=== PATIENT | male | born 1940 | race Caucasian/White ===

== ENCOUNTER 2017-05-05 10:47 | Observation (INO) | payer MEDICARE ==
[2017-05-05] MEDS: NORMAL SALINE 1,000 ML IV PRN ×2 (12:13→14:24)
[2017-05-05] MEDS ORDERED: PANTOPRAZOLE SODIUM 80 MG in NORMAL SALINE 100 ML IV ONE (13:00)
[2017-05-05] MEDS ORDERED: PANTOPRAZOLE SODIUM 40 MG in NORMAL SALINE 50 ML IV SCH (13:15)
[2017-05-05 15:56] LABS: Hematocrit 21.4 % (42.0-52.0)
[2017-05-05] MEDS ORDERED: ACETAMINOPHEN 325 MG TABLET PO PRN (17:41)
[2017-05-05] MEDS ORDERED: HYDROcodone/ACETAMINOPHEN 1 EACH TABLET PO PRN (18:01)
[2017-05-05] MEDS ORDERED: ACETAMINOPHEN 500 MG TABLET PO PRN (18:01)
--- NOTE | 2017-05-05 18:01 | HP ---
Chief Complaint - Chief Complaint Date of Service: 05/05/17 Time of Service: 12:45 Chief Complaint: Fatigue and black stools History of Present Illness: Keven is a 76 yo male with PMH of atrial fibrillation on xarelto, CAD , PVD, GERD, lumbar disc herniation. He reports frequent black diarrhea this week. No bright red blood, emesis, or abdominal pain. He reports feeling more fatigued this week than usual. He has been on xarelto for a couple weeks after being switched from Coumadin to xarelto. He was switched to xarelto for convenience. He likes not having to check his labs routinely or watch his diet closely like he did while on coumadin. He denies use of NSAIDs, stating he uses tylenol. There has been no significant change in his diet. He reports his GERD is controlled with omeprazole 20mg daily, which he has been taking. He was seen in the ER initially on 05/01/17. His hemoglobin was 10 and he has heme positive stools. He was scheduled for follow up in clinic on 05/04/17. In clinic on 05/04/17 he was seen and found to have a hgb of 8.3 and reported still having black stools. He reported the frequency had decreased. We discussed admission at that time but he elected to treat as outpatient. He was told to hold his xarelto, started on omeprazole 40mg BID, educated to hydrate, and return today for a recheck of hgb. He was informed if he has an increase in black stools or stools show bright red blood to return to the ER. He returned to clinic lab this morning and repeat hgb was 7.8. He reports stools continue to get less frequent and reports that this mornings stool was solid and appeared dark brownish. - Patient's Past Medical History Patient History - Medical: Anemia, Cataracts, Depression, GERD, Headache, Hypothyroidism, Renal Disease Patient History - Cardiac/Respiratory: Angina, Atrial Fibrillation, Coronary Heart Disease, CHF, Deep Vein Thrombosis, Hypertension, Peripheral Vascular Disease, TIA Patient History - Cancer: No Hx of Cancer Patient History - Surgical Procedures: Angioplasty, Cataracts, Cholecystectomy, Colonoscopy, Coronary Bypass Surgery, Pacemaker, Other Patient History - Other: None - Family History Mother Family History - Medical: Family History - Cardiac/Respiratory: COPD, Myocardial Infarction Father Family History - Medical: Family History - Cardiac/Respiratory: Myocardial Infarction - Social History Living Situations: home Abuse History: No History of abuse Psych History: Hx of Anxiety, Hx of Depression Smoking Status: Former smoker Have you smoked in the past 12 months: No Alcohol Use: none Drug Use: none - Immunizations Immunizations Up to Date: Yes Hx Pneumococcal Vaccination: Yes History of Influenza Vaccine: Yes Review Of Systems (GEN) - Review of Systems Generalized/Overall Review: Present: Weakness, Fatigue. Absent: Chills, Fever EENTM: Present: No Symptoms Reported Cardiac: Present: No Symptoms Reported Abdominal: Present: Diarrhea, Melena. Absent: Nausea, Vomiting, Hematemesis, Abdominal Pain, Constipation, Bright blood from rectum Genitourinary: Present: No Symptoms Reported Musculoskeletal: Present: No Symptoms Reported Neurological: Present: No Symptoms Reported Skin: Present: No Symptoms Reported Endocrine: Present: No Symptoms Reported Immunizations: IMMUNIZATION HX Immunizations Up to Date Yes History of Influenza Vaccine Yes Hx Pneumococcal Vaccination Yes Allergies/Adverse Reactions: Allergies Allergy/AdvReac Type Severity Reaction Status Date / Time meperidine HCl [From Demerol] Allergy Verified 08/01/14 15:54 Home Medications: HOME MEDICATIONS Aspirin [William Chewable Aspirin] 81 mg PO DAILY 01/23/14 [Last Taken Unknown] Ferrous Sulfate [Iron] 325 mg PO BID 01/23/14 [Last Taken Unknown] Flaxseed Oil [Flax Seed Oil] 1,000 mg PO DAILY 01/23/14 [Last Taken Unknown] Furosemide [Lasix] 80 mg PO BID 01/23/14 [Last Taken Unknown] Levothyroxine Sodium [Unithroid] 100 mcg PO DAILY 01/23/14 [Last Taken Unknown] Lisinopril [Zestril] 5 mg PO DAILY 01/23/14 [Last Taken Unknown] Multivitamin [Multi-Vitamin Daily] 1 each PO DAILY 01/23/14 [Last Taken Unknown] Omeprazole [Prilosec] 40 mg PO BID 01/23/14 [Last Taken Unknown] traZODone HCL [Desyrel] 100 mg PO DAILY 01/23/14 [Last Taken Unknown] FLUoxetine HCL [Prozac] 40 mg PO DAILY 05/30/14 [Last Taken Unknown] Rivaroxaban [Xarelto] 15 mg PO DAILY 05/01/17 [Last Taken Unknown] Acetaminophen [Tylenol] 1,000 mg PO Q6H PRN 05/05/17 [Last Taken Unknown] Atorvastatin Calcium 40 mg PO HS 05/05/17 [Last Taken Unknown] Carvedilol [Coreg] 12.5 mg PO BID 05/05/17 [Last Taken Unknown] Docusate Sodium 100 mg PO HS 05/05/17 [Last Taken Unknown] HYDROcodone/ACETAMINOPHEN [Hydrocodone-Acetamin 5-325 mg] 1 tab PO Q4H PRN 05/05 [Last Taken Unknown] Lactobacillus Combination No.4 [Probiotic] 2 each PO DAILY 05/05/17 [Last Taken Unknown] Loratadine [Claritin] 10 mg PO DAILY 05/05/17 [Last Taken Unknown] Exam - Exam Vital Signs: Vital Signs - Last Taken Temp 36.5 C 05/05/17 16:10 Pulse 66 05/05/17 16:10 Resp 16 05/05/17 16:10 BP 128/44 05/05/17 16:10 Pulse Ox 96 05/05/17 16:10 Constitutional: Present: Alert, Oriented x3, Cooperative ENT Exam: Present: hard of hearing Eye Exam: bilateral eye: normal inspection Respiratory: Present: lungs clear, normal breath sounds Cardiovascular/Chest: Present: no edema, no murmur, irregularly irregular Abdomen: Present: Normal bowel sounds, soft, nontender, nondistended Skin Exam: Present: normal color, warm/dry, no cyanosis Appearance: Present: appropriate appearance, appropriate insight Eye contact: Present: cooperative, good eye contact, normal speech Diagnostic Studies: Abnormal Lab Results 05/05/17 05/05/17 Range/Units 10:10 15:41 Hgb 7.0 L* (13.5-18.0) gm/dL Hct 21.4 L* (42.0-52.0) % Crossmatch See Detail Laboratory Results Hgb 7.0 gm/dL (13.5-18.0) L* 05/05/17 15:41 Hct 21.4 % (42.0-52.0) L* 05/05/17 15:41 Blood Type B Positive 05/05/17 10:10 Antibody Screen Negative 05/05/17 10:10 Crossmatch See Detail 05/05/17 10:10 Assessment/Plan - Narrative Narrative: Aurelio is a 76 yo male with: 1) Upper GI Bleed - Black tarry stools with hemoccult positive stools while on xarelto. Will hold xarelto, give 2 large bore IVs to give aggressive replacement if needed, protonix 80mg IV bolus then 40mg IV q12hr, NPO, serial hemograms every 6 hours. I suspect he is hypovolemic due to diarrhea and will therefore give NS 1 liter over 2 hours and recheck hgb an hour after this to see what a more accurate hgb may be. I suspect the current hgb of 7.8 to be hemeconcentrated. If hgb drops to 7 or less will plan to transfuse 2 units of pRBCs and then continue to monitor serial hemograms q6hr. Clinically it sounds as though GI bleed is slowing down based on the decreased frequency of stools, increasing firmness, and more brown appearance of the stool today. 2) Acute Blood Loss Anemia 3) Atrial Fibrillation - Holding xarelto due to GI bleed. Will place on SCDs while in bed for DVT prophylaxis. Will need to consider risks vs benefits of staying on xarelto senior care for anticoagulation vs returning to Coumadin vs trying Eliquis. 4) CKDIII - Stable 5) Social - Due to clinically appearance that the GI bleed has stopped expect that if hemoglobin remains stable after blood transfusions that he may be able to be discharged to home tomorrow. Expect 1 midnight stay and will therefore admit to observation. - Assessment/Plan (1) Upper GI bleed Problem: Acute (2) Acute blood loss anemia Problem: Acute (3) Atrial fibrillation Problem: Chronic (4) Chronic diastolic heart failure Problem: Chronic (5) Chronic kidney disease, stage 3 Problem: Chronic
[2017-05-05] MEDS ORDERED: FUROSEMIDE 10 MG/ML VIAL ONE (20:06)
[2017-05-05] MEDS ORDERED: FUROSEMIDE 10 MG/ML VIAL IV ONE (20:30)
[2017-05-05] MEDS: FUROSEMIDE 10 MG/ML VIAL IV ONE ×2 (20:30→20:43)
[2017-05-05] MEDS: FERROUS SULFATE 325 MG TABLET PO SCH (20:39)
[2017-05-05] MEDS ORDERED: FERROUS SULFATE 325 MG TABLET PO SCH ×2 (21:00)
[2017-05-05] MEDS ORDERED: traZODone HCL 50 MG TABLET PO SCH (21:00)
[2017-05-05] MEDS ORDERED: ATORVASTATIN CALCIUM 40 MG TABLET PO SCH (21:00)
[2017-05-05] MEDS ORDERED: CARVEDILOL 12.5 MG TABLET PO SCH (21:00)
[2017-05-05] MEDS ORDERED: DOCUSATE SODIUM 100 MG CAPSULE PO SCH ×2 (21:00)
[2017-05-05] MEDS: CARVEDILOL 12.5 MG TABLET PO SCH (23:04)
[2017-05-06 00:50] LABS: Hematocrit 25.8 % (42.0-52.0); Hemoglobin 8.8 gm/dL (13.5-18.0)
[2017-05-06] MEDS ORDERED: PANTOPRAZOLE SODIUM 40 MG in NORMAL SALINE 50 ML IV SCH (01:00)
[2017-05-06] MEDS: NORMAL SALINE 1,000 ML IV PRN (04:57)
[2017-05-06] MEDS ORDERED: LEVOTHYROXINE SODIUM 100 MCG TABLET PO SCH (07:00)
--- NOTE | 2017-05-06 08:50 | DS ---
(1) Acute blood loss anemia Problem: Acute (2) Upper GI bleed Problem: Acute (3) Black tarry stools Problem: Acute (4) Atrial fibrillation Problem: Chronic (5) GERD (gastroesophageal reflux disease) Problem: Chronic (6) Hypothyroidism Problem: Chronic Description of Stay: Keven Gomes, is a 76 yo male with PMH of atrial fibrillation on xarelto, CAD, PVD, GERD, lumbar disc herniation who was admitted on 05/05/2017 for black tarry stools and anemia. . HE HAD frequent black diarrhea on the week of admission. No bright red blood, emesis, or abdominal pain. He reports feeling more fatigued this week than usual. He has been on xarelto for a couple weeks after being switched from Coumadin to xarelto. He denied use of NSAIDs. There was no significant change in his diet. His GERD is controlled with omeprazole 20mg daily, which he hasd been taking. He was seen in the ER initially on 05/01/17. His hemoglobin was 10 and he has heme positive stools. He was scheduled for follow up in clinic on 05/04/17. In clinic on 05/04/17 he was seen and found to have a hgb of 8.3 and reported still having black stools. He reported the frequency had decreased.Dr. Kumari discussed admission at that time but he elected to treat as outpatient. He was told to hold his xarelto, started on omeprazole 40mg BID, educated to hydrate, and return today for a recheck of hgb. He was informed if he had an increase in black stools or stools show bright red blood to return to the ER. He returned to clinic on the morning of admission and repeat hgb was 7.8. He reported stools continue to get less frequent . He was admitted then for serial H/H. His Hb went down to 7 and he had 2 units of PRBC. His Hb is up to 8.8. After discussion about EGD, they have decided go home today and follow up with Dr. Kumari about their next step. Procedures Performed: none Discharge Location: Home Disposition: Home self-care Condition: Stable Discharge Activity: Activity as tolerated Discharge Diet: Low salt Referrals: Cory Kumari DO [Primary Care Provider] - Problem Oriented Discharge Instructions to Patient/Family: Gastrointestinal Bleeding, [id number] Additional Patient Instructions (free text): -Please make TCM appointment unless halfway discharge. Thank you! Layla @ [phone]. Please make an appointment with Dr. Kumari this Monday. Repeat H/H this Monday. Complete Home Medications List: Complete Home Medication List: Ferrous Sulfate [Iron] 325 mg PO BID 01/23/14 Flaxseed Oil [Flax Seed Oil] 1,000 mg PO DAILY 01/23/14 Furosemide [Lasix] 80 mg PO BID 01/23/14 Levothyroxine Sodium [Unithroid] 100 mcg PO DAILY 01/23/14 Lisinopril [Zestril] 5 mg PO DAILY 01/23/14 Multivitamin [Multi-Vitamin Daily] 1 each PO DAILY 01/23/14 Omeprazole [Prilosec] 40 mg PO BID 01/23/14 traZODone HCL [Desyrel] 100 mg PO DAILY 01/23/14 FLUoxetine HCL [Prozac] 40 mg PO DAILY 05/30/14 Acetaminophen [Tylenol] 1,000 mg PO Q6H PRN 05/05/17 Atorvastatin Calcium 40 mg PO HS 05/05/17 Carvedilol [Coreg] 12.5 mg PO BID 05/05/17 Docusate Sodium 100 mg PO HS 05/05/17 HYDROcodone/ACETAMINOPHEN [Hydrocodone-Acetamin 5-325 mg] 1 tab PO Q4H PRN 05/05 Lactobacillus Combination No.4 [Probiotic] 2 each PO DAILY 05/05/17 Loratadine [Claritin] 10 mg PO DAILY 05/05/17 Amb Orders for Discharge: CBC Time Frame: 05/08/17, Location: Determined By Patient
[2017-05-06] MEDS ORDERED: LORATADINE 10 MG TABLET PO SCH (09:00)
[2017-05-06] MEDS ORDERED: FUROSEMIDE 80 MG TABLET PO SCH (09:00)
[2017-05-06] MEDS ORDERED: LISINOPRIL 5 MG TABLET PO SCH (09:00)
[2017-05-06] MEDS ORDERED: CARVEDILOL 12.5 MG TABLET PO SCH (09:00)
[2017-05-06] MEDS ORDERED: LACTOBACILLUS ACIDOPHILUS 100 CAP BTL PO SCH (09:00)
[2017-05-06] MEDS ORDERED: MULTIVITAMINS 1 CAP CAPSULE PO SCH (09:00)
[2017-05-06] MEDS ORDERED: FLUoxetine HCL 20 MG CAPSULE PO SCH (09:00)
[2017-05-06] MEDS: FERROUS SULFATE 325 MG TABLET PO SCH (09:15)
[2017-05-06] MEDS: CARVEDILOL 12.5 MG TABLET PO SCH (09:15)
[2017-05-06 09:34] VITALS: BP 136/64
== END 2017-05-06 11:15 | disposition home or self-care (01) ==
LOC: MS 10:47
PROVIDERS: ADMIT Family Medicine; ATTEND Family Medicine
DX: D62 Acute posthemorrhagic anemia (principal); K92.2 Gastrointestinal hemorrhage, unspecified; K92.1 Melena; I48.2 Chronic atrial fibrillation; Z79.01 Long term (current) use of anticoagulants; K21.9 Gastro-esophageal reflux disease without esophagitis; E03.9 Hypothyroidism, unspecified; I12.9 Hypertensive chronic kidney disease with stage 1 through stage 4 chronic kidney disease, or unspecified chronic kidney disease; N18.3 Chronic kidney disease, stage 3 (moderate); Z87.891 Personal history of nicotine dependence; I50.32 Chronic diastolic (congestive) heart failure; I25.10 Atherosclerotic heart disease of native coronary artery without angina pectoris; Z68.26 Body mass index [BMI] 26.0-26.9, adult
CPT/HCPCS: 36430; 85014; 85018; 86850; 86900; 96374; G0378; G0379; P9016

== ENCOUNTER 2019-07-30 17:44 | Observation (INO) ==
[2019-07-30 18:17] LABS: Hemoglobin 11.4 gm/dL (13.5-18.0); Mean Cell Volume 98.6 fl (78-100); Mean Corpuscular Hemoglobin 32.1 pg (27-31); Mean Corpuscular Hgb Conc 32.6 g/dl (32-36); Mean Platelet Volume 10.7 fl (8-11.3); Neutrophil # 2.9 K/mm3 (1.3-6.0); Neutrophil % 68.4 % (42-75.0); Platelet Count 114 K/mm3 (150-450); Red Blood Count 3.55 M/mm3 (4.7-6.0); Red Cell Distribution Width 18.5 % (11.5-14.0); White Blood Count 4.3 K/mm3 (4.0-10.5)
[2019-07-30 18:22] LABS: Prothrombin Time (Patient) 13.2 Seconds (9.1-10.7)
[2019-07-30 18:26] LABS: INR 1.35 INR (0.92-1.08); Partial Thrombolplastin Time 32.4 Seconds (24-32)
[2019-07-30 18:39] LABS: Albumin * 3.5 gm/dl (3.4-5.0); Anion Gap 15.9 mmol/L (6.8-13.8); BUN/Creatinine Ratio 26.5 (9.0-21.6); Bilirubin, Total 1.4 mg/dL (0.0-1.1); Ca. Corrected For Albumin 9.1 mg/dL (8.4-10.2); Potassium 4.9 mmol/L (3.4-4.6); Total Protein 7.6 gm/dL (6.2-8.2)
--- NOTE | 2019-07-30 19:42 | ERNOTE ---
GI Bleeding/Rectal Pain ER Date of Service: 07/30/19 Presenting Symptoms: rectal bleeding Time Seen by Provider: 07/30/19 18:13 Source: patient Exam Limitations: no limitations Immunizations: IMMUNIZATION HX Immunizations Up to Date Yes History of Influenza Vaccine Yes Hx Pneumococcal Vaccination Yes Allergies/Adverse Reactions: Allergies Penicillins Allergy (Verified 07/30/19 18:16) Other meperidine HCl [From Demerol] Adverse Reaction (Severe, Verified 07/30/19 18:16) "goes wild" Home Medications: HOME MEDICATIONS Ferrous Sulfate [Iron] 650 mg PO DAILY 01/23/14 [Last Taken Unknown] Flaxseed Oil [Flax Seed Oil] 1,000 mg PO DAILY 01/23/14 [Last Taken Unknown] Multivitamin [Multi-Vitamin Daily] 1 ea PO DAILY 01/23/14 [Last Taken Unknown] Docusate Sodium 100 mg PO BID 05/05/17 [Last Taken Unknown] Loratadine [Claritin] 10 mg PO DAILY 05/05/17 [Last Taken Unknown] Aspirin 81 mg PO DAILY 06/23/17 [Last Taken Unknown] Acetaminophen 325 mg PO Q4H PRN 08/15/17 [Last Taken Unknown] polyethylene glycol 3350 17 gram/dose oral powder 17 g PO DAILY g 09/13/17 [Last Taken Unknown] apixaban 5 mg tablet 5 mg PO BID #180 tab 07/11/18 [Last Taken Unknown] fluoxetine 60 mg tablet 60 mg PO DAILY #90 tab 11/06/18 [Last Taken Unknown] furosemide 80 mg tablet 80 mg PO DAILY #180 tab 11/07/18 [Last Taken Unknown] levothyroxine 100 mcg tablet 100 mcg PO DAILY #90 tab 12/24/18 [Last Taken Unknown] lisinopril 5 mg tablet 5 mg PO DAILY #90 tab 03/26/19 [Last Taken Unknown] carvedilol 3.125 mg tablet 3.125 mg PO BIDWM #180 tab 04/16/19 [Last Taken Unknown] Omeprazole 20 mg PO DAILY 07/30/19 [Last Taken Unknown] Narrative: Patient presents to the ED for blood in stool. He presents with a bag of bright red blood that he brought with him. He has had 3 episodes of this blood stool since last night. Given that it is ongoing he came in. He is anticoagulated. Mild low abdominal cramping at times. No CP or acute SOB. He is due to gat his pacemaker changed this month. Has had GI bleeding before like this and had a leasion in his colon by his report. No vomiting. Timing: intermittent Quality/Severity: Present: moderate Nausea/Vomiting: Present: blood Abdominal Pain: Present: other - mild low abdominal cramping Rectal Bleeding: Present: without stool Associated Symptoms: Reports: other - bloody Prior Treament: Denies: recently seen Review of Systems - Review of Systems Constitutional: Absent: fever EYE: Present: no symptoms reported ENT: Absent: sore throat Respiratory: Absent: shortness of breath Cardiology: Absent: chest pain Gastrointestinal/Abdominal: Present: See HPI Genitourinary: Absent: dysuria Neurological: Absent: weakness All Other Systems: All systems neg except as marked Medical History (Last Reviewed 07/30/19 @ 19:33 by Gareth Arzate MD) Cardiomyopathy (Chronic) Onset Date: 09/16/14 CHF (congestive heart failure) (Chronic) Onset Date: 07/31/14 Chronic systolic CHF (congestive heart failure) (Chronic) Onset Date: Unknown Chronic kidney disease, stage 3 (Chronic) Onset Date: 11/14/16 Weakness (Acute) Onset Date: Unknown Coronary artery disease (Chronic) Onset Date: Unknown Atrial fibrillation (Chronic) Onset Date: Unknown Pulmonary hypertension (Chronic) Onset Date: Unknown Hypothyroidism (Chronic) Onset Date: Unknown GERD (gastroesophageal reflux disease) (Chronic) Onset Date: Unknown Chronic diastolic heart failure (Chronic) Onset Date: Unknown Anemia (Acute) Onset Date: Unknown Peripheral vascular disease (Chronic) Onset Date: 06/07/16 Has received pneumococcal vaccination Onset Date: Unknown Received influenza vaccination in current influenza season prior to admission Onset Date: ~11/2017 Atrial flutter Onset Date: 07/31/14 Bilateral hearing loss Onset Date: Unknown Deviated nasal septum Onset Date: Unknown Diverticula of colon Onset Date: 02/21/06 Essential hypertension Onset Date: Unknown Lumbar herniated disc Onset Date: Unknown Renal insufficiency Onset Date: Unknown Sleep apnea Onset Date: 07/31/14 Surgical History: Surgical History (Last Reviewed 07/30/19 @ 19:33 by Gareth Arzate MD) History of implantable cardioverter-defibrillator (ICD) placement Onset Date: 04/15/09 [facility] - AV ICD History of angioplasty Onset Date: 10/03/11 [facility] - distal abd aortogram, rasta iliac angiogram, right leg angiogram, right popliteal artery [employer], right anterior tib artery [employer] History of arterial bypass of lower extremity Onset Date: 07/14/16 right common femoral to anterior tibial artery bypass with ipsilateral reversed greater saphenous vein. Dr. Blanton, [facility]. History of barium enema Onset Date: 02/21/06 extensive colonic diverticular disease History of carotid endarterectomy Onset Date: ~09/2015 [facility] History of cholecystectomy Onset Date: Unknown History of cholecystectomy with sphincterotomy and common bile duct extraction. History of common bile duct surgery Onset Date: Unknown History of cholecystectomy with sphincterotomy and common bile duct extraction. History of esophagogastroduodenoscopy (EGD) Onset Date: 08/16/17 Dr. Kely Burdick, [facility]. EGD with biopsy. clotest negative. History of sphincterotomy of sphincter of Oddi Onset Date: Unknown History of cholecystectomy with sphincterotomy and common bile duct extraction. History of surgery on extremity Onset Date: ~2004 thrombectomy, right lower extremity History of vascular surgery Onset Date: 11/12/16 11/12/2016: RLE lysis check with arteriogram and angioplasty to occluded LE bypass graft. Dr. Cooney, [facility]. 01/04/2017: angioplasty of right bypass. Dr. Blanton [facility]. 02/24/2017: angioplasty , proximal segment of right bypass graft scored and angioplasty with drug coated balloon. Dr. Flores, [facility]. 06/27/2017: Right basiliv vein harvest, revision of right [employer]PER[employer]OR [employer]- AT bypass with interposition graft in the thigh, completion angiogram. Dr. Blanton [facility]. Status post cystourethroscopy with dilation of urethral stricture Onset Date: 12/26/05 Dr. Vyas History of cardiac pacemaker Onset Date: Unknown History of colonoscopy Onset Date: 08/17/17 Dr. Kely Burdick, [facility]. serrated adenoma. RECHECK 3 YEARS. Family History: Family History (Last Reviewed 07/30/19 @ 19:33 by Gareth Arzate MD) Brother Hypertension Father , age 68 Myocardial infarction Heart disease Mother , age 72 Hypertension Heart disease Social History: (Last Reviewed 07/30/19 @ 19:34 by Gareth Arzate MD) Social History: adopted: No fdc: No Marital status: lives independently: Yes household members: spouse caregiver/support person: Yes current occupational status: retired Highest education level completed: high school graduate Service: No Tobacco: Smoking Status: Former smoker Tobacco: How many years used: 20 Alcohol: alcohol intake: former Substance Use: substance use type: does not use Dietary Habits: caffeine: Yes Type: coffee, carbonated beverages Physical Exam - Physical Exam General Appearance: Present: alert, no apparent distress Head Exam: Present: normal inspection, no evidence of injury Eye Exam: Normal inspection: bilateral, PERRL: bilateral Ears, Nose, Throat: Present: normal ENT inspection Neck: Present: normal inspection Respiratory: Present: no respiratory distress, normal breath sounds, no accessory muscle use, lungs clear Cardiovascular/Chest: Present: regular rate, rhythm, normal peripheral pulses Gastrointestinal/Abdominal: Present: normal bowel sounds, soft, other - minimal LLQ tendenress to palpation. Rectal Exam: Present: other - no external hemorrhoids. No abscess Back Exam: Present: normal range of motion Extremity Exam: Present: normal range of motion Neurological Exam: Present: alert, no motor/sensory deficits Skin Exam: Present: normal color, warm/dry Progress - Results and Orders Patient's Lab Results:: I have reviewed the patient's lab results. - Vital Signs Patient's Vital Signs:: I have reviewed the patient's vital signs. Vital Signs: Vital Signs 07/30/19 17:49 07/30/19 18:47 Temperature 36.5 C Pulse Rate 63 61 Respiratory Rate 16 12 Blood Pressure 137/72 130/84 O2 Sat by Pulse Oximetry 96 96 - Progress/Reassessment Chief Complaint: GI Bleed Progress Note-Subjective: 07/30/19 19:40 Patient is anticoagulated with recurrent bloody stools. He has apparent on- going bleeding given recurrent episodes and is at high risk with his general poor health and anticoagualted status. D/W Dr Kumari who will admit for observation. His stability as outpatient cannot be guaranteed. Patient is most agreeable to plan of action. Departure Clinical Impression: GI bleeding, Anticoagulated - Departure Disposition: Still a patient Condition: Fair
[2019-07-30] MEDS ORDERED: PANTOPRAZOLE SODIUM 80 MG in NORMAL SALINE 100 ML IV ONE (22:52)
[2019-07-30] MEDS ORDERED: ACETAMINOPHEN 325 MG TABLET PO PRN (22:58)
[2019-07-30 23:16] LABS: Hemoglobin 11.1 gm/dL (13.5-18.0); Mean Cell Volume 98.8 fl (78-100); Mean Corpuscular Hemoglobin 32.3 pg (27-31); Mean Corpuscular Hgb Conc 32.6 g/dl (32-36); Mean Platelet Volume 11.3 fl (8-11.3); Platelet Count 117 K/mm3 (150-450); Red Blood Count 3.44 M/mm3 (4.7-6.0); Red Cell Distribution Width 18.5 % (11.5-14.0); White Blood Count 4.2 K/mm3 (4.0-10.5)
--- NOTE | 2019-07-30 23:38 | HP ---
Chief Complaint - Chief Complaint Date of Service: 07/30/19 Time of Service: 23:22 Chief Complaint: Bright red blood History of Present Illness: Aurelio is a 78 yo male with peripheral arterial disease on chronic anticoagulation. He has had a history of brief and minor GI bleeds and has elected to remain on anticoagulation. He reports for the past three days he has had bright red bloody stools. He reports fatigue is a little more than usual and today he was having LLQ abdominal pain. He reports at the moment that the abdominal pain is gone. He has not had nausea or emesis. He reports no change in medication or diet. He presented to the ER today due to continued bright red bloody stools. He reports his last dose of blood thinner was this morning. He also reports cardiology is planning to replace his pacemaker 08/16/19. Medical History (Last Reviewed 07/30/19 @ 20:09 by Светлана Gallegos RN) Cardiomyopathy (Chronic) Onset Date: 09/16/14 CHF (congestive heart failure) (Chronic) Onset Date: 07/31/14 Chronic systolic CHF (congestive heart failure) (Chronic) Onset Date: Unknown Chronic kidney disease, stage 3 (Chronic) Onset Date: 11/14/16 Weakness (Acute) Onset Date: Unknown Coronary artery disease (Chronic) Onset Date: Unknown Atrial fibrillation (Chronic) Onset Date: Unknown Pulmonary hypertension (Chronic) Onset Date: Unknown Hypothyroidism (Chronic) Onset Date: Unknown GERD (gastroesophageal reflux disease) (Chronic) Onset Date: Unknown Chronic diastolic heart failure (Chronic) Onset Date: Unknown Anemia (Acute) Onset Date: Unknown Peripheral vascular disease (Chronic) Onset Date: 06/07/16 Has received pneumococcal vaccination Onset Date: Unknown Received influenza vaccination in current influenza season prior to admission Onset Date: ~11/2017 Atrial flutter Onset Date: 07/31/14 Bilateral hearing loss Onset Date: Unknown Deviated nasal septum Onset Date: Unknown Diverticula of colon Onset Date: 02/21/06 Essential hypertension Onset Date: Unknown Lumbar herniated disc Onset Date: Unknown Renal insufficiency Onset Date: Unknown Sleep apnea Onset Date: 07/31/14 Surgical History: Surgical History (Last Reviewed 07/30/19 @ 20:09 by Светлана Gallegos RN) History of implantable cardioverter-defibrillator (ICD) placement Onset Date: 04/15/09 [facility] - AV ICD History of angioplasty Onset Date: 10/03/11 [facility] - distal abd aortogram, rasta iliac angiogram, right leg angiogram, right popliteal artery [employer], right anterior tib artery [employer]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 Dr. Blanton, [facility]. History of barium enema Onset Date: 02/21/06 extensive colonic diverticular disease History of carotid endarterectomy Onset Date: ~09/[address] [facility] History of cholecystectomy Onset Date: Unknown History of cholecystectomy with sphincterotomy and common bile duct extraction. History of common bile duct surgery Onset Date: Unknown History of cholecystectomy with sphincterotomy and common bile duct extraction. History of esophagogastroduodenoscopy (EGD) Onset Date: 08/16/17 Dr. Kely Burdick [facility]. EGD with biopsy. clotest negative. History of sphincterotomy of sphincter of Oddi Onset Date: Unknown History of cholecystectomy with sphincterotomy and common bile duct extraction. History of surgery on extremity Onset Date: ~2004 thrombectomy, right lower extremity History of vascular surgery Onset Date: 11/12/16 11/12/2016: RLE lysis check with arteriogram and angioplasty to occluded LE bypass graft. Dr. Cooney, [facility]. 01/04/2017: angioplasty of right bypass. Dr. Blanton [facility]. 02/24/2017: angioplasty , proximal segment of right bypass graft scored and angioplasty with drug coated balloon. Dr. Flores, [facility]. 06/27/2017: Right basiliv vein harvest, revision of right [employer]- AT bypass with interposition graft in the thigh, completion angiogram. Dr. Blanton, [facility]. Status post cystourethroscopy with dilation of urethral stricture Onset Date: 12/26/05 Dr. Vyas History of cardiac pacemaker Onset Date: Unknown History of colonoscopy Onset Date: 08/17/17 Dr. Kely Burdick, [facility]. serrated adenoma. RECHECK 3 YEARS. Family History: Family History (Last Reviewed 07/30/19 @ 20:09 by Светлана Gallegos, TEJ) Brother Hypertension Father , age 68 Myocardial infarction Heart disease Mother , age 72 Hypertension Heart disease Social History: (Last Reviewed 07/30/19 @ 20:09 by Светлана Gallegos, TEJ) Social History: adopted: No mcfp: No Marital status: lives independently: Yes household members: spouse caregiver/support person: Yes current occupational status: retired Highest education level completed: high school graduate Service: No Tobacco: Smoking Status: Former smoker Tobacco: How many years used: 20 Alcohol: alcohol intake: former Substance Use: substance use type: does not use Dietary Habits: caffeine: Yes Type: coffee, carbonated beverages Review Of Systems (GEN) - Review of Systems Generalized/Overall Review: Present: Weakness. Absent: Chills, Fever EENTM: Present: No Symptoms Reported Respiratory: Absent: Cough, Shortness of Breath Cardiac: Absent: Chest Pain, Edema, Palpitations Abdominal: Present: Abdominal Pain, Bright blood from rectum. Absent: Nausea, Vomiting, Hematemesis, Melena Genitourinary: Present: No Symptoms Reported Musculoskeletal: Present: No Symptoms Reported Neurological: Absent: Headache, Anxiety Skin: Absent: Lesions, Lumps Endocrine: Absent: Excessive Sweating, Flushing Immunizations: IMMUNIZATION HX Immunizations Up to Date Yes History of Influenza Vaccine Yes Hx Pneumococcal Vaccination Yes Allergies/Adverse Reactions: Allergies Allergy/AdvReac Type Severity Reaction Status Date / Time Penicillins Allergy Other Verified 07/30/19 18:16 meperidine HCl [From Demerol] AdvReac Severe "goes wild" Verified 07/30/19 18:16 Home Medications: HOME MEDICATIONS Ferrous Sulfate [Iron] 650 mg PO DAILY 01/23/14 [Last Taken Unknown] Flaxseed Oil [Flax Seed Oil] 1,000 mg PO DAILY 01/23/14 [Last Taken Unknown] Multivitamin [Multi-Vitamin Daily] 1 ea PO DAILY 01/23/14 [Last Taken Unknown] Docusate Sodium 100 mg PO BID 05/05/17 [Last Taken Unknown] Loratadine [Claritin] 10 mg PO DAILY 05/05/17 [Last Taken Unknown] Aspirin 81 mg PO DAILY 06/23/17 [Last Taken Unknown] Acetaminophen 325 mg PO Q4H PRN 08/15/17 [Last Taken Unknown] polyethylene glycol 3350 17 gram/dose oral powder 17 g PO DAILY g 09/13/17 [Last Taken Unknown] apixaban 5 mg tablet 5 mg PO BID #180 tab 07/11/18 [Last Taken Unknown] levothyroxine 100 mcg tablet 100 mcg PO DAILY #90 tab 12/24/18 [Last Taken Unknown] lisinopril 5 mg tablet 5 mg PO DAILY #90 tab 03/26/19 [Last Taken Unknown] carvedilol 3.125 mg tablet 3.125 mg PO BIDWM #180 tab 04/16/19 [Last Taken Unknown] Dextrin [Fiber] 350 gm PO 07/30/19 [Last Taken Unknown] FLUoxetine HCL [Fluoxetine HCl] 40 mg PO BID 07/30/19 [Last Taken Unknown] Furosemide [Lasix] 80 mg PO BID 07/30/19 [Last Taken Unknown] Omeprazole 20 mg PO DAILY 07/30/19 [Last Taken Unknown] Exam - Exam Vital Signs: Vital Signs - Last Taken Temp 36.3 C 07/30/19 19:45 Pulse 60 07/30/19 19:45 Resp 21 H 07/30/19 19:45 BP 152/89 H 07/30/19 19:45 Pulse Ox 94 07/30/19 19:45 Constitutional: Present: Alert, Oriented x3, Cooperative ENT Exam: Present: hearing grossly normal Eye Exam: bilateral eye: normal inspection Respiratory: Present: lungs clear, normal breath sounds Cardiovascular/Chest: Present: no murmur, bradycardia. Absent: edema Peripheral Pulses: radial (R): 2+, radial (L): 2+ Abdomen: Present: Normal bowel sounds, soft, nontender, nondistended Skin Exam: Present: normal color, other - lips darkened (usual appearance) Appearance: Present: appropriate appearance, appropriate insight Eye contact: Present: cooperative, good eye contact Thoughts: Present: normal thought pattern, no apparent hallucination Diagnostic Studies: Abnormal Lab Results 07/30/19 07/30/19 07/30/19 Range/Units 18:00 18:05 18:05 RBC 3.55 L (4.7-6.0) M/mm3 Hgb 11.4 L (13.5-18.0) gm/dL Hct 35.0 L (42.0-52.0) % MCH 32.1 H (27-31) pg RDW 18.5 H (11.5-14.0) % Plt Count 114 L (150-450) K/mm3 Lymphocytes % 18.2 L (20-51) % Monocytes % 11.4 H (0.0-9) % Lymphocytes # 0.78 L (1.5-3.5) k/mm3 PT 13.2 H (9.1-10.7) Seconds INR (Anticoag Therapy) 1.35 H (0.92-1.08) INR PTT (Mere) 32.4 H (24-32) Seconds Potassium (3.4-4.6) mmol/L Carbon Dioxide (24-32.6) mmol/L Anion Gap (6.8-13.8) mmol/L BUN (6-23) mg/dL Creatinine (0.4-1.4) mg/dL Est GFR (Non-Af Amer) (60-130) mL/min BUN/Creatinine Ratio (9.0-21.6) Random Glucose (70-110) mg/dL Total Bilirubin (0.0-1.1) mg/dL ALT (19-67) U/L Stool Occult Blood Positive H 07/30/19 07/30/19 Range/Units 18:05 22:58 RBC 3.44 L (4.7-6.0) M/mm3 Hgb 11.1 L (13.5-18.0) gm/dL Hct 34.0 L (42.0-52.0) % MCH 32.3 H (27-31) pg RDW 18.5 H (11.5-14.0) % Plt Count 117 L (150-450) K/mm3 Lymphocytes % (20-51) % Monocytes % (0.0-9) % Lymphocytes # (1.5-3.5) k/mm3 PT (9.1-10.7) Seconds INR (Anticoag Therapy) (0.92-1.08) INR PTT (White) (24-32) Seconds Potassium 4.9 H (3.4-4.6) mmol/L Carbon Dioxide 22.0 L (24-32.6) mmol/L Anion Gap 15.9 H (6.8-13.8) mmol/L BUN 76 H (6-23) mg/dL Creatinine 2.87 H (0.4-1.4) mg/dL Est GFR (Non-Af Amer) 23 L (60-130) mL/min BUN/Creatinine Ratio 26.5 H (9.0-21.6) Random Glucose 117 H (70-110) mg/dL Total Bilirubin 1.4 H (0.0-1.1) mg/dL ALT 119 H (19-67) U/L Stool Occult Blood Laboratory Results WBC 4.2 K/mm3 (4.0-10.5) 07/30/19 22:58 RBC 3.44 M/mm3 (4.7-6.0) L 07/30/19 22:58 Hgb 11.1 gm/dL (13.5-18.0) L 07/30/19 22:58 Hct 34.0 % (42.0-52.0) L 07/30/19 22:58 MCV 98.8 fl (78-100) 07/30/19 22:58 MCH 32.3 pg (27-31) H 07/30/19 22:58 MCHC 32.6 g/dl (32-36) 07/30/19 22:58 RDW 18.5 % (11.5-14.0) H 07/30/19 22:58 Plt Count 117 K/mm3 (150-450) L 07/30/19 22:58 MPV 11.3 fl (8-11.3) 07/30/19 22:58 Immature Gran % (Auto) 0.20 % (0.001-0.429) 07/30/19 18:05 Immature Gran # (Auto) 0.01 K/mm3 (0.000-0.0310) 07/30/19 18:05 Neutrophils % 68.4 % (42-75.0) 07/30/19 18:05 Lymphocytes % 18.2 % (20-51) L 07/30/19 18:05 Monocytes % 11.4 % (0.0-9) H 07/30/19 18:05 Eosinophils % 1.6 % (0.0-3.0) 07/30/19 18:05 Basophils % 0.2 % (0.0-1.0) 07/30/19 18:05 Nucleated RBC % 0.0 k/mm3 (0-1) 07/30/19 18:05 Neutrophils # 2.9 K/mm3 (1.3-6.0) 07/30/19 18:05 Lymphocytes # 0.78 k/mm3 (1.5-3.5) L 07/30/19 18:05 Monocytes # 0.5 k/mm3 (0.0-1.0) 07/30/19 18:05 Eosinophils # 0.1 k/mm3 (0.0-0.7) 07/30/19 18:05 Absolute Basophils 0.0 k/mm3 (0.0-0.1) 07/30/19 18:05 PT 13.2 Seconds (9.1-10.7) H 07/30/19 18:05 INR (Anticoag Therapy) 1.35 INR (0.92-1.08) H 07/30/19 18:05 PTT (White) 32.4 Seconds (24-32) H 07/30/19 18:05 Sodium 136 mmol/L (132-142) 07/30/19 18:05 Plasma Sodium 136 mmol/L (130-142) 07/30/19 18:05 Potassium 4.9 mmol/L (3.4-4.6) H 07/30/19 18:05 Chloride 103 mmol/L (97-106) 07/30/19 18:05 Carbon Dioxide 22.0 mmol/L (24-32.6) L 07/30/19 18:05 Anion Gap 15.9 mmol/L (6.8-13.8) H 07/30/19 18:05 BUN 76 mg/dL (6-23) H 07/30/19 18:05 Creatinine 2.87 mg/dL (0.4-1.4) H 07/30/19 18:05 Est GFR (Non-Af Amer) 23 mL/min (60-130) L 07/30/19 18:05 BUN/Creatinine Ratio 26.5 (9.0-21.6) H 07/30/19 18:05 Random Glucose 117 mg/dL (70-110) H 07/30/19 18:05 Calcium 9.0 mg/dL (7.9-10.9) 07/30/19 18:05 Calcium Adj for Albumin 9.1 mg/dL (8.4-10.2) 07/30/19 18:05 Total Bilirubin 1.4 mg/dL (0.0-1.1) H 07/30/19 18:05 AST 29 U/L (0-48) 07/30/19 18:05 ALT 119 U/L (19-67) H 07/30/19 18:05 Alkaline Phosphatase 99 U/L (50-170) 07/30/19 18:05 Total Protein 7.6 gm/dL (6.2-8.2) 07/30/19 18:05 Albumin 3.5 gm/dl (3.4-5.0) 07/30/19 18:05 Stool Occult Blood Positive H 07/30/19 18:00 Blood Type B Positive 07/30/19 18:05 Antibody Screen Negative 07/30/19 18:05 Assessment/Plan - Assessment/Plan (1) GI bleeding Assessment: Aurelio likely has lower GI bleeding due to its bright red appearance. Will make NPO and get serial hemograms. Hemoglobin is relatively good at 11.4. Will admit to observation and monitor. Will go ahead and start IV protonix and hold anticoagulant. If hemoglobin is stable and bleeding stops he may be able to dis charge to home tomorrow. If hemoglobin continues to drop and bleeding continues will consult with surgery. Problem: Acute Qualifiers: GI bleed type/associated pathology: unspecified gastrointestinal hemorrhage type Qualified Code(s): K92.2 - Gastrointestinal hemorrhage, unspecified (2) Anticoagulated Problem: Chronic
[2019-07-31 04:54] LABS: Hemoglobin 11.1 gm/dL (13.5-18.0); Mean Corpuscular Hgb Conc 32.6 g/dl (32-36); Mean Platelet Volume 10.8 fl (8-11.3); Platelet Count 109 K/mm3 (150-450); Red Blood Count 3.47 M/mm3 (4.7-6.0); Red Cell Distribution Width 18.6 % (11.5-14.0)
[2019-07-31] MEDS ORDERED: LEVOTHYROXINE SODIUM 100 MCG TABLET PO SCH (07:00)
[2019-07-31] MEDS ORDERED: BISACODYL 5 MG TABLET.DR PO ONE (08:18)
[2019-07-31] MEDS ORDERED: FERROUS SULFATE 325 MG TABLET PO SCH (09:00)
[2019-07-31] MEDS ORDERED: CALCIUM POLYCARBOPHIL 625 MG TABLET PO SCH (09:00)
[2019-07-31] MEDS ORDERED: CARVEDILOL 3.125 MG TABLET PO SCH (09:00)
[2019-07-31] MEDS ORDERED: FLUoxetine HCL 20 MG CAPSULE PO SCH (09:00)
[2019-07-31] MEDS ORDERED: LORATADINE 10 MG TABLET PO SCH (09:00)
[2019-07-31 10:45] LABS: Hematocrit 35.7 % (42.0-52.0); Hemoglobin 11.3 gm/dL (13.5-18.0); Mean Cell Volume 99.2 fl (78-100); Mean Corpuscular Hemoglobin 31.4 pg (27-31); Mean Corpuscular Hgb Conc 31.7 g/dl (32-36); Mean Platelet Volume 11.2 fl (8-11.3); Platelet Count 113 K/mm3 (150-450); Red Cell Distribution Width 18.6 % (11.5-14.0); White Blood Count 4.1 K/mm3 (4.0-10.5)
[2019-07-31] MEDS ORDERED: PANTOPRAZOLE SODIUM 40 MG in NORMAL SALINE 100 ML IV SCH (11:00)
--- NOTE | 2019-07-31 13:26 | DS ---
(1) GI bleeding Problem: Resolved Qualifiers: GI bleed type/associated pathology: unspecified gastrointestinal hemorrhage type Qualified Code(s): K92.2 - Gastrointestinal hemorrhage, unspecified (2) Anticoagulated Problem: Chronic Date of Discharge:: 07/31/19 Hospital Course: Aurelio was admitted for GI bleed with bright red blood while on Eliquis. He has a history of diverticulosis and likely had a diverticular bleed. He was made NPO, started on IV protonix just to cover for possible upper GI bleed, had serial hemograms ordered, and admitted to observation to monitor bleeding overnight. He did well. His hemoglobin was stable and was respectively 11.4 on admission and every 6 hours was 11.1, 11.1, and 11.3. His bloody bowel movements were less frequent, and vitals were stable. He is medically stable to be discharged to home today with evidence of stable hemoglobin. Based on renal function and bleeding episode will decrease his dose of eliquis to 2.5mg BID. He is to follow up with cardiology in a couple weeks for pacemaker change. I will follow up with him in a week and recheck labs and follow up on his stools. Procedures Performed: none Results and Findings: Lab Pending Results 07/30/19 18:00: Stool Occult Blood Positive H 07/30/19 18:05: WBC 4.3, RBC 3.55 L, Hgb 11.4 L, Hct 35.0 L, MCV 98.6, MCH 32.1 H, MCHC 32.6, RDW 18.5 H, Plt Count 114 L, MPV 10.7, Immature Gran % (Auto) 0.20, Immature Gran # (Auto) 0.01, Neutrophils % 68.4, Lymphocytes % 18.2 L, Monocytes % 11.4 H, Eosinophils % 1.6, Basophils % 0.2, Nucleated RBC % 0.0, Neutrophils # 2.9, Lymphocytes # 0.78 L, Monocytes # 0.5, Eosinophils # 0.1, Absolute Basophils 0.0 07/30/19 18:05: PT 13.2 H, INR (Anticoag Therapy) 1.35 H, PTT ([place]) 32.4 H 07/30/19 18:05: Sodium 136, Plasma Sodium 136, Potassium 4.9 H, Chloride 103, Carbon Dioxide 22.0 L, Anion Gap 15.9 H, BUN 76 H, Creatinine 2.87 H, Est GFR (Non-Af Amer) 23 L, BUN/Creatinine Ratio 26.5 H, Random Glucose 117 H, Calcium 9.0, Calcium Adj for Albumin 9.1, Total Bilirubin 1.4 H, AST 29, ALT 119 H, A lkaline Phosphatase 99, Total Protein 7.6, Albumin 3.5 07/30/19 18:05: Blood Type B Positive, Antibody Screen Negative 07/30/19 22:58: WBC 4.2, RBC 3.44 L, Hgb 11.1 L, Hct 34.0 L, MCV 98.8, MCH 32.3 H, MCHC 32.6, RDW 18.5 H, Plt Count 117 L, MPV 11.3 07/31/19 04:50: WBC 4.0, RBC 3.47 L, Hgb 11.1 L, Hct 34.0 L, MCV 98.0, MCH 32.0 H, MCHC 32.6, RDW 18.6 H, Plt Count 109 L, MPV 10.8 07/31/19 10:40: WBC 4.1, RBC 3.60 L, Hgb 11.3 L, Hct 35.7 L, MCV 99.2, MCH 31.4 H, MCHC 31.7 L, RDW 18.6 H, Plt Count 113 L, MPV 11.2 Discharge Location: Home Disposition: Home self-care Condition: Fair Discharge Activity: Activity as tolerated Discharge Diet: General/regular food Referrals: Cory Kumari DO [Primary Care Provider] - One Week Problem Oriented Discharge Instructions to Patient/Family: Gastrointestinal Bleeding, [id number] Prescriptions (Any new or edited meds): Apixaban [Eliquis] 2.5 mg PO BID #60 tab Transmission Status: Pending to [facility] Complete Home Medications List: Complete Home Medication List: Ferrous Sulfate [Iron] 650 mg PO DAILY 01/23/14 Flaxseed Oil [Flax Seed Oil] 1,000 mg PO DAILY 01/23/14 Multivitamin [Multi-Vitamin Daily] 1 ea PO DAILY 01/23/14 Docusate Sodium 100 mg PO BID 05/05/17 Loratadine [Claritin] 10 mg PO DAILY 05/05/17 Aspirin 81 mg PO DAILY 06/23/17 Acetaminophen 325 mg PO Q4H PRN 08/15/17 polyethylene glycol 3350 17 gram/dose oral powder 17 g PO DAILY g 09/13/17 levothyroxine 100 mcg tablet 100 mcg PO DAILY #90 tab 12/24/18 lisinopril 5 mg tablet 5 mg PO DAILY #90 tab 03/26/19 carvedilol 3.125 mg tablet 3.125 mg PO BIDWM #180 tab 04/16/19 Dextrin [Fiber] 350 gm PO 07/30/19 FLUoxetine HCL [Fluoxetine HCl] 40 mg PO BID 07/30/19 Furosemide [Lasix] 80 mg PO BID 07/30/19 Omeprazole 20 mg PO DAILY 07/30/19 Apixaban [Eliquis] 2.5 mg PO BID #60 tab 07/31/19
[2019-07-31 14:22] VITALS: BP 143/76
== END 2019-07-31 14:15 | disposition home or self-care (01) ==
LOC: ER 17:44 → MS 17:44
PROVIDERS: ADMIT Family Medicine; ATTEND Family Medicine
CPT/HCPCS: 36415; 80053; 82272; 85025; 85027; 85610; 85730; 86850; 96365; 96366; 99285; G0378